=== PATIENT | male | born 1950 | race Caucasian/White ===

== ENCOUNTER 2018-07-22 08:48 | Emergency (ER) | payer OTHER ==
[2018-07-22] MEDS ORDERED: ONDANSETRON 4 MG/2 ML VIAL ONE (08:54)
[2018-07-22] MEDS ORDERED: ONDANSETRON 4 MG/2 ML VIAL IVP ONE (08:54)
[2018-07-22] MEDS ORDERED: NS 500 ML IV ONE (08:54)
--- NOTE | 2018-07-22 08:58 | EDPHY ---
H & P Time Seen by Provider: 07/22/18 08:54 HPI/ROS: CHIEF COMPLAINT: Syncope HISTORY OF PRESENT ILLNESS: Patient is a 68-year-old male with a past medical history of "hypoglycemia" who presents emergency department after syncopal episode. The patient was standing with his son when he suddenly fainted. His son caught him and lowered him to the ground. There is no reported trauma. Patient was "out of it" when EMS arrived. Patient was noted to have a glucose of 84. The son insisted that the patient's symptoms could be secondary to hypoglycemia. EMS treated the patient with D10. Patient's symptoms slowly improved. His mental status improved in route. The patient is still confused. He does not recall the events of the day. He denies any headache. No chest pain or shortness of breath. No abdominal pain. REVIEW OF SYSTEMS: 10 systems were reveiwed and are negative with the exception of the elements mentioned in the history of present illness. Past Medical/Surgical History: Patient reports hypoglycemia. No other reported past medical history Past surgical history: Denies Social history: Patient does not smoke. Denies alcohol use. Physical Exam: Vitals noted GENERAL: Well-appearing, in no acute distress, alert. HEENT: Eyes normal to inspection, normal pharynx, no signs of dehydration. NECK: Normal, supple. RESPIRATORY: Clear to auscultation bilaterally, no rales, rhonchi or wheezing. CVS: Regular rate and rhythm, no rubs, murmurs, or gallops. ABDOMEN: Soft, nontender, nondistended, no organomegaly. BACK: Normal to inspection, no CVA tenderness. SKIN: Normal color, no rash, warm, dry. No pallor. EXTREMITIES: No pedal edema, no calf tenderness, no Homans sign or cords, no joint swelling. NEURO/PSYCH: Higher functions: Alert and Oriented x3. Normal speech and cognition. Normal mood and affect. Cranial nerves: Normal as tested. Cerebellar: Normal as tested. Good finger to nose, good [id number], normal gait. Peripheral exam: Normal motor exam. Normal sensation. Normal reflexes. Constitutional: Initial Vital Signs Temperature (C) 36.6 C 07/22/18 09:01 Heart Rate 89 07/22/18 09:01 Respiratory Rate 16 07/22/18 09:01 Blood Pressure 134/84 H 07/22/18 09:01 O2 Sat (%) 93 07/22/18 09:01 O2 Delivery Mode Room Air Allergies/Adverse Reactions: No Known Allergies Allergy (Unverified 07/22/18 09:00) Medical Decision Making - Diagnostics Imaging Results: Imaging Impressions Head CT 07/22/18 08:54 Impression: Mild generalized cerebral atrophy. No evidence for acute intracranial abnormality. Results called and discussed with Dr. Sharita Lane at 07/22/2018 9:28. Chest X-Ray 07/22/18 08:55 Impression: Probable mild to moderate bronchitis. No other findings for acute cardiopulmonary abnormality. ED Course/Re-evaluation: I met EMS on arrival. I took report from the armhole baster hand. The patient's initial glucose was 84. Patient was noted to be sinus tachycardic on the EMS 4 lead. Laboratory studies, EKG, chest x-ray and head CT were ordered. Patient's family arrived. The and son gave further history. They state that this is typical for the patient. When his blood sugar becomes lower than normal he feels this way. I discussed that the patient's blood glucose was 84. I described the typically this is not cause the patient to become confused or have a syncopal episode. Head CT: This was ordered prior to the patient's family's arrival. Negative for acute disease per Dr. Mistry. Patient was given food in the emergency department. The patient and family refused EKG I when re-evaluated the patient. I recommended and EKG be completed. They are adamant that he did not want this test done. They did not want any further testing in the emergency department. They requested discharge. The patient answer my questions appropriately. He understood my recommendations and had capacity to make a decision not to have these tests done. The patient was discharged from the emergency department without further testing. Differential Diagnosis: My differential includes but is not limited to syncope, ACS, acute IA, dysrhythmia, dissection, aneurysm, CVA, electrolyte abnormality, sugar abnormality, dehydration - Data Points Laboratory Results: Laboratory Results 07/22/18 09:00 07/22/18 09:00 07/22/18 07/22/18 07/22/18 09:01 09:00 09:00 WBC 11.16 10^3/uL H 10^3/uL (3.80-9.50) RBC 4.90 10^6/uL 10^6/uL (4.40-6.38) Hgb 14.4 g/dL g/dL (13.7-17.5) Hct 45.8 % % (40.0-51.0) MCV 93.5 fL fL (81.5-99.8) MCH 29.4 pg pg (27.9-34.1) MCHC 31.4 g/dL L g/dL (32.4-36.7) RDW 13.6 % % (11.5-15.2) Plt Count 310 10^3/uL 10^3/uL (150-400) MPV 9.2 fL fL (8.7-11.7) Neut % (Auto) Pending Lymph % (Auto) Pending [place] % (Auto) Pending Eos % (Auto) Pending Baso % (Auto) Pending Nucleat RBC Rel Count Pending Absolute Neuts (auto) Pending Absolute Lymphs (auto) Pending Absolute Monos (auto) Pending Absolute Eos (auto) Pending Absolute Basos (auto) Pending Absolute Nucleated RBC Pending Immature Gran % Pending Immature Gran # Pending Platelet Estimate Pending Sodium 137 mEq/L mEq/L (135-145) Potassium 3.7 mEq/L mEq/L (3.5-5.2) Chloride 106 mEq/L mEq/L (97-110) Carbon Dioxide 17 mEq/l L mEq/l (22-31) Anion Gap 14 mEq/L mEq/L (6-14) BUN 22 mg/dL mg/dL (7-23) Creatinine 1.2 mg/dL mg/dL (0.7-1.3) Estimated GFR > 60 Glucose 135 mg/dL H mg/dL (70-100) Calcium 8.6 mg/dL mg/dL (8.5-10.4) POC Troponin I 0.01 ng/mL ng/mL (0.00-0.08) Medications Given: Discontinued Medications Sodium Chloride (Ns) 500 mls @ 0 mls/hr IV ONCE ONE; Wide Open PRN Reason: Protocol Stop: 07/22/18 08:55 Last Admin: 07/22/18 08:56 Dose: 500 mls Ondansetron HCl (Zofran) 4 mg IVP EDNOW ONE Stop: 07/22/18 08:55 Last Admin: 07/22/18 08:56 Dose: 4 mg Point of Care Test Results: Chemistry 07/22/18 09:01 POC Troponin I 0.01 ng/mL ng/mL (0.00-0.08) Departure - Departure Disposition: Home, Routine, Self-Care Clinical Impression: Syncope Qualifiers: Syncope type: unspecified Qualified Code(s): R55 - Syncope and collapse Condition: Good Instructions: Syncope (ED) Additional Instructions: Return with increasing lightheadedness, dizziness, weakness, chest pain, shortness of breath, repeat episode of fainting or any other concerns. Referrals: Nubia Dewey MD [Medical Doctor] - 3-4 days, if not improved
[2018-07-22 09:06] LABS: PLATELET COUNT 310 10^3/uL (150-400)
[2018-07-22 09:53] VITALS: BP 111/71
--- NOTE | 2018-07-24 22:11 | CPEKG ---
Test Reason : OPEN Blood Pressure : / mmHG Vent. Rate : 069 BPM Atrial Rate : 069 BPM P-R Int : 202 ms QRS Dur : 119 ms QT Int : 430 ms P-R-T Axes : -29 -74 067 degrees QTc Int : 461 ms Sinus rhythm LAD, consider left anterior fascicular block Anteroseptal infarct, age indeterminate Confirmed by Sharita aLne ([id number]) on 07/24/2018 10:10:37 PM Referred By: Sharita Lane Confirmed By:Sharita Lane
== END 2018-07-22 10:05 | disposition home or self-care (01) ==
DX: R55 Syncope and collapse (principal)
CPT/HCPCS: 70450; 71046; 93005; 96361; 96374; 99285; J2405; 84484-ER